=== PATIENT | female | born 1960 | race Caucasian/White ===

== ENCOUNTER → 2019-08-30 13:34 | Outpatient (BNVA) | payer MEDICAID, SELFPAY | PROVIDERS: Family Provider Nurse Practitioner; PCP Nurse Practitioner; Visit Provider Specialist | DX: G47.411 Narcolepsy with cataplexy (principal); F17.210 Nicotine dependence, cigarettes, uncomplicated | CPT/HCPCS: 99213 ==

== ENCOUNTER → 2019-11-16 08:58 | Outpatient (BNVA) | payer MEDICAID, SELFPAY | PROVIDERS: Family Provider Nurse Practitioner; PCP Nurse Practitioner; Visit Provider Nurse Practitioner | DX: M46.1 Sacroiliitis, not elsewhere classified (principal); R00.0 Tachycardia, unspecified; E78.2 Mixed hyperlipidemia; E55.9 Vitamin D deficiency, unspecified | CPT/HCPCS: 80053; 80061; 82306; 84443 ==

== ENCOUNTER → 2019-12-26 11:59 | Outpatient (BNVA) | payer MEDICAID, SELFPAY | PROVIDERS: Family Provider Nurse Practitioner; PCP Nurse Practitioner; Visit Provider Nurse Practitioner | DX: M54.30 Sciatica, unspecified side (principal); R00.0 Tachycardia, unspecified | CPT/HCPCS: 82607 ==

== ENCOUNTER 2020-01-02 15:19 | Outpatient (CLI) | payer MEDICAID, SELFPAY ==
--- NOTE | 2020-01-02 15:00 | USCV_ITS ---
Nataly Soto Age: 59 Gender: F : 1960 Exam Date: 01/02/2020 15:31 Ordering Phys: Enrique Rene Technologist: Exam Location: [facility] [place]_ Indication: COLD LT FOOT Risk Factors: COLD LT FOOT Previous Vascular Surgery: None RIGHT LEFT BP: 113.0 / BP: 121.0/ 0 0 Waveform Velocity (cm/s) Velocity (cm/s) Waveform Iliac Prox 76.1 Biphasic Iliac Mid 69.2 Biphasic Iliac Distal Biphasic 54.3 MEDICAL RECORDS DIRECTOR 63.0 Biphasic SFA Prox 74.8 Biphasic SFA Mid 77.7 Biphasic SFA Dist 56.2 Biphasic POP 80.1 Biphasic TIGHTENER 31.5 Biphasic DPA 26.4 Biphasic 1.1 YARA 1.0 FINDINGS CALLED PRELIM TO BRIANNA AT CLINIC Normal resting YARA bilaterally Abnormal arterial Doppler waveform in the left side CONCLUSIONS No significant arterial obstruction based on the above findings. Abnormal Doppler waveforms, may suggest arterial noncompliance Dr Bernarda Mckeon MD [facility] (Electronically Signed) Final Date: 03 Jan 2020 20:13 S
== END 2020-01-02 15:20 | disposition home or self-care (01) ==
LOC: RAD 15:22
PROVIDERS: Family Provider Nurse Practitioner; PCP Nurse Practitioner; Visit Provider Nurse Practitioner
DX: M79.605 Pain in left leg (principal); M79.675 Pain in left toe(s); R20.9 Unspecified disturbances of skin sensation
CPT/HCPCS: 93926

== ENCOUNTER 2020-01-17 10:44 | Outpatient (CLI) | payer MEDICAID, SELFPAY ==
--- NOTE | 2020-01-17 11:17 | XR_ITS ---
WS: [id number] LUMBAR SPINE TECHNIQUE: 3 views of the lumbar spine CLINICAL INFORMATION: lumbar pain down left leg COMPARISON: 2013 FINDINGS: Five tbd-egj-oekorhn lumbar vertebral bodies. Cholecystectomy clips. Mild disc space narrowing throug hout the lumbar spine. Slight retrolisthesis L2 on L3 and L3 on L4. Moderate facet arthropathy L5-S1. Aortic calcification. XR/XR lumbar spine 2-3V* [id number] IMPRESSION: 1. Slight retrolisthesis L2 on L3 and L3 on L4. 2. Mild disc space narrowing throughout the lumbar spine. 3. No acute appearing compression fractures. 4. Mild to moderate spondylitic changes. 5. Disc space narrowing progressed since 2013
== END 2020-01-17 10:45 | disposition home or self-care (01) ==
LOC: RADWPI 10:48
PROVIDERS: Family Provider Nurse Practitioner; PCP Nurse Practitioner; Visit Provider Nurse Practitioner
DX: M54.30 Sciatica, unspecified side (principal)
CPT/HCPCS: 72100

== ENCOUNTER 2020-02-07 16:07 | Outpatient (CLI) | payer MEDICAID, SELFPAY ==
--- NOTE | 2020-02-07 15:15 | MR_ITS ---
WS: [id number] MRI LUMBAR SPINE NONCONTRAST TECHNIQUE: Sagittal T1, T2 and STIR imaging. Axial T1 and T2 imaging. CLINICAL INFORMATION: M43.10 Spondylolisthesis, site unspecified COMPARISON: None. FINDINGS: Lumbar curve. No acute compression. Multilevel disc bulging throughout the lumbar spine. T2 hyperintense eccentric lesion in the left cauda equina extending from 2.1 x 0.6 x 0.7 cm craniocau torey by AP by transverse. Eccentric displacement of the surrounding cauda equina nerve rootlets. Cauda equina lesion extends from L2 to L3. Recommend further evaluation with gadolinium. Findings suspicio us for schwannoma versus ependymoma. L1-L2: Mild disc bulging with slight effacement of ventral thecal sac. Tiny central protrusion. Mild facet arthropathy. L2-L3: Mild annular bulging. Slight effacement of the ventral thecal sac. Mild facet arthropathy. Mil d left and no significant right foraminal narrowing. L3-L4: Mild disc bulging with moderate central canal stenosis. Moderate facet arthropathy ligament fl avum hypertrophy. Moderate right and no significant left foraminal narrowing. Slight impingement on t he exiting right L3 nerve root and traversing right L4 nerve root. L4-L5: Mild annular bulging with slight effacement of the ventral thecal sac. Mild to moderate centra l canal stenosis. Impingement traversing left greater than right L5 nerve roots. Left foraminal protr usion with mild to moderate left foraminal narrowing and contact of the exiting left L4 nerve root. M ild right foraminal narrowing. L5-S1: Mild annular bulging. Tiny central protrusion. Slight contact the left S1 nerve root. Foramen are patent. Mild facet arthropathy. Peripelvic renal cysts. MR/MR lumbar spine wo con* [id number] IMPRESSION: 1. T2 hyperintense lesion within the cauda equina nerve rootlets extending fro m L2 to L3 eccentric to the left. This measures 2.1 x 0.6 by 0.7 CM. Recommend further evaluation with gadolinium. Primary differential considerations include schwannoma versus ependymoma. 2. Moderate central canal stenosis L3-4 and mild/moderate central canal stenos is L4-5. Impingement traversing right L4 and left L5 nerve roots in the subarti cular recess. 3. Mild to moderate foraminal narrowing right L3-4 and left L4-5. 4. Shallow left pericentral protrusion L5-S1 slightly contacts the left S1 ner ve root.
== END 2020-02-07 16:08 | disposition home or self-care (01) ==
LOC: RADSHAW 16:10
PROVIDERS: PCP Nurse Practitioner; Visit Provider Nurse Practitioner
DX: M43.10 Spondylolisthesis, site unspecified (principal); G58.8 Other specified mononeuropathies; M48.061 Spinal stenosis, lumbar region without neurogenic claudication; M51.27 Other intervertebral disc displacement, lumbosacral region
CPT/HCPCS: 72148

== ENCOUNTER → 2020-02-19 12:58 | Outpatient (BNVA) | payer MEDICAID, SELFPAY | PROVIDERS: PCP Nurse Practitioner; Visit Provider Specialist | DX: G47.419 Narcolepsy without cataplexy (principal); D43.4 Neoplasm of uncertain behavior of spinal cord; M54.5 Low back pain | CPT/HCPCS: 99214 ==

== ENCOUNTER 2020-02-20 13:17 | Outpatient (CLI) | payer MEDICAID, SELFPAY ==
--- NOTE | 2020-02-20 13:48 | MR_ITS ---
WS: [id number] MRI LUMBAR SPINE WITHOUT AND WITH CONTRAST TECHNIQUE: Sagittal T1, T2 and STIR imaging. Axial T1 and T2 imaging. Post gadolinium imaging was obt ained. CLINICAL INFORMATION: MR WITHOUT CONTRAST RECOMMENDS COMPARISON: MRI February 07, 2020 FINDINGS: Mild Lumbar curve. No acute compression. Alignment is unchanged. Multilevel disc bulging throughout t he lumbar spine. Again seen is the T2 hyperintense eccentric lesion in the left cauda equina at L2-L3. This lesion is more well-defined today with less motion artifact and is better defined with contrast today. Enhancin g lesion measures approximately 5 x 4 mm. Eccentric displacement of the surrounding cauda equina nerve rootlets. Post gadolinium images demonst rate intense homogeneous enhancement most consistent with a small schwannoma. No other enhancing lesi ons. No other significant changes from previous. L1-L2: Mild disc bulging with slight effacement of ventral thecal sac. Tiny central protrusion. Mild facet arthropathy. L2-L3: Mild annular bulging. Slight effacement of the ventral thecal sac. Mild facet arthropathy. Mil d left and no significant right foraminal narrowing. L3-L4: Mild disc bulging with moderate central canal stenosis. Moderate facet arthropathy with ligame ntum flavum hypertrophy. Moderate right and no significant left foraminal narrowing. Slight impingeme nt on the exiting right L3 nerve root and traversing right L4 nerve root. L4-L5: Mild annular bulging with slight effacement of the ventral thecal sac. Mild to moderate centra l canal stenosis. Impingement traversing left greater than right L5 nerve roots. Left foraminal protr usion with mild to moderate left foraminal narrowing and contact of the exiting left L4 nerve root. M ild right foraminal narrowing. L5-S1: Mild annular bulging. Tiny central protrusion. Slight contact left S1 nerve root. Foramen are patent. Mild facet arthropathy. MR/MR lumbar spine w con [id number] IMPRESSION: 1. Homogeneously enhancing lesion in the left cauda equina nerve rootlets at L 2-3 measuring 5 x 4 mm. This lesion appears smaller and more well-defined today . Well-circumscribed lesion most consistent with a small schwannoma. 2. No other significant changes from previous.
== END 2020-02-20 13:18 | disposition home or self-care (01) ==
PROVIDERS: Family Provider Nurse Practitioner; PCP Nurse Practitioner; Visit Provider Specialist
DX: M54.5 Low back pain (principal)
CPT/HCPCS: 72149; A9579

== ENCOUNTER 2020-02-28 11:26 | Outpatient (CLI) | payer MEDICAID, SELFPAY ==
--- NOTE | 2020-02-28 11:00 | IR_ITS ---
WS: [id number] MYELOGRAM LUMBAR SPINE Fluoroscopic guided lumbar myelogram CLINICAL INFORMATION: lumbar pain COMPARISON: None. TECHNIQUE: The procedure, including risks, benefits, and complications, were discussed with the patie nt who agreed to proceed. A timeout was performed to confirm correct patient, procedure, and site. Using sterile technique, the patient was prepped and draped in the usual sterile fashion. After admin istration of local anesthesia using 1% preservative-free lidocaine and using fluoroscopic guidance, a 22-gauge spinal needle was advanced into the subarachnoid space at the L5-S1 level. Subsequently 13 cc of Omnipaque 240 was administered into the thecal sac. The needle was removed and hemostasis was a chieved. Spot fluoroscopic images were obtained. FLUOROSCOPIC TIME: .7 minutes. Spot fluoroscopic images demonstrate mild lumbar curve convex left. Cholecystectomy clips. 5 nonrib-b earing lumbar vertebral bodies. Aortic calcification. Slight retrolisthesis L2 on L3 and L3 on L4. Mi ld disc space narrowing L1-2, L3-4, and L4-5. No instability on flexion-extension. Please see CT myelogram report for additional detail. IR/IR myelogram sp lumbar [id number] IMPRESSION: 1. Encounter lumbar myelogram. 2. No instability on flexion-extension.
--- NOTE | 2020-02-28 11:30 | CT_ITS ---
WS: [id number] CT LUMBAR SPINE TECHNIQUE: Contrast-enhanced CT of the lumbar spine with coronal and sagittal reformatted images. CLINICAL INFORMATION: lumbar pain COMPARISON: MRI February 19, 2019 and MRI February 07, 2020 DLP: [id number] scans at [facility] use at least one of these dose optimization techniques: automat ed exposure control; mA and/or kV adjustment per patient size (includes targeted exams where dose is matched to clinical indication); or iterative reconstruction. FINDINGS: Mild lumbar curve. No high-grade central canal stenosis. Mild disc bulging throughout the lumbar spin e. Again seen is the intrathecal lesion at the L2-3 level previously seen on the recent MRIs. This me asures approximately 5.4 x 4.7 x 4.4 mm. Findings are most consistent with a small schwannoma on the prior MRI. Displacement of the surrounding cauda equina nerve rootlets. L1-L2: Mild disc bulging with tiny central protrusion. Spinal canal and foramen are patent. Vacuum di sc phenomenon. Trace retrolisthesis. L2-L3: Mild annular bulging with impingement on the left subarticular recess and traversing left L3 n erve root. Mild left and no significant right foraminal narrowing. Mild facet arthropathy. L3-L4: Mild disc bulging with endplate ridging. Moderate central canal stenosis due to disc bulging i n combination with facet arthropathy and ligamentum flavum hypertrophy. Mild right greater than left foraminal narrowing. L4-L5: Mild disc bulging with moderate central canal stenosis. Impingement on the subarticular recess bilaterally. Mild facet arthropathy. Mild left greater than right foraminal narrowing. Mild disc bul ging with endplate ridging. Mild left and no significant right foraminal narrowing. Spinal canal is p atent. L5-S1: Normal. Visualized pelvic bony structures: Normal. Paravertebral soft tissues: Normal. CT/CT lumbar spine w con [id number] IMPRESSION: 1. Again seen is the solid intrathecal lesion at the L2-3 level today measurin g 5.4 x 4.7 x 4.4 mm. Surrounding displacement of the cauda equina nerve rootle ts. Imaging characteristics most consistent with small nerve sheath tumor likel y schwannoma on the prior MRI. 2. Moderate central canal stenosis L3-L4 and L4-L5. 3. Mild to moderate foraminal narrowing described above unchanged.
[2020-02-28] MEDS: iohexol 240 mg/mL 50 mL Btl INTRATHECA (13:04)
== END 2020-02-28 11:27 | disposition home or self-care (01) ==
PROVIDERS: Family Provider Nurse Practitioner; PCP Nurse Practitioner; Visit Provider Specialist
DX: D43.4 Neoplasm of uncertain behavior of spinal cord; M48.062 Spinal stenosis, lumbar region with neurogenic claudication
CPT/HCPCS: 62304; 72120; 72132; Q9966

== ENCOUNTER → 2020-05-06 14:18 | Outpatient (BNVA) | payer MEDICAID, SELFPAY | PROVIDERS: Family Provider Nurse Practitioner; PCP Nurse Practitioner; Visit Provider Nurse Practitioner | DX: M48.062 Spinal stenosis, lumbar region with neurogenic claudication (principal); E78.2 Mixed hyperlipidemia; R00.0 Tachycardia, unspecified; E55.9 Vitamin D deficiency, unspecified; M46.96 Unspecified inflammatory spondylopathy, lumbar region | CPT/HCPCS: 80053; 80061; 82306; 84443 ==

== ENCOUNTER 2020-05-29 04:50 | Inpatient (IN) | payer MEDICAID, SELFPAY ==
--- NOTE | 2020-05-29 04:52 | ECG_ITS ---
[facility] Test Date: 2020-05-29 Pat Name: Nataly Soto Department: Room: Gender: Female Receptionist: : 1960 Requested By: Sarah Lopez Order Number: [id number] Victoria MD: Bernarda Mckeon M.D. Measurements Intervals [place] Rate: 87 P: 50 DE: 129 QRS: 49 QRSD: 81 T: 37 QT: 377 QTc: 454 Interpretive Statements SINUS RHYTHM WITH MARKED SINUS ARRHYTHMIA No previous ECG available for comparison Electronically Signed On 05-29-2020 21:26:34 CDT by Bernarda Mckeon M.D. [id number]
[2020-05-29 04:53] VITALS: PULSE 87; RESP 16; TEMP 36.7; O2SAT 96; BMI 25.4
--- NOTE | 2020-05-29 05:27 | ED_ITS ---
HPI - Psych General: Chief Complaint: Psychiatric Symptoms Stated Complaint: mhe Time Seen by Provider: 05/29/20 05:13 Source: patient and EMS Mode of arrival: EMS Limitations: no limitations History of Present Illness: HPI Narrative: Nataly is a 59-year-old female brought in by EMS after she was pulled over by law enforcement but then started admitting to hallucinations. She denies any suicidal or homicidal ideation. She states she is seeing things that other people are not seeing. She admits to having this problem before. The patient has a very flat withdrawn affect. F urther history is taken from old charts but the patient has no medical complaints at this time. Review of Systems Const: Denies: fever(s), chills, body aches, fatigue, malaise or diaphoresis Eyes: Denies: change in vision, blurry vision, photophobia, eye discomfort, eye discharge, eye redness or yellow eyes ENMT: Denies: throat pain, odynophagia, hoarseness, swelling of lips/tongue, ear or mastoid pain, ear discharge, change in hearing or nasal discharge Card: Denies: chest pain, palpitations, irregular heart rhythm, edema, lightheadedness, syncope, pre-syncope, dyspnea on exertion or orthopnea Resp: Denies: dyspnea, productive cough, non-productive cough, wheezing, hemoptysis or chest congestion GI: Denies: abdominal pain, nausea, vomiting, hematemesis, coffee ground emesis, heartburn, diarrhea, constipation, GI cramping, hematochezia or melena : Denies: flank pain, dysuria, urinary frequency, urinary urgency or hematuria Musc: Denies: neck pain, back pain, extremity pain, extremity swelling, joint pain, joint swelling, joint redness, joint warmth or joint stiffness Skin/Breast: Denies: rash, pruritus, erythema, skin pain or skin tenderness Neuro: Denies: headache(s), numbness in extremities, weakness in extremities, sensory changes, lack of coordination, difficulty walking, dizziness, vertigo, confusion, Slurred speech present or seizure-like activity Nghia/Lymph: Denies: easy bruising, easy bleeding, petechiae, purpura or enlarged lymph nodes All/Imm: Denies: urticaria, throat swelling, tongue swelling, facial swelling or acute wheezing PFS ED PFSH: Medical History Diverticulosis Footdrop Lumbar stenosis with neurogenic claudication Mixed hyperlipidemia 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 Personal history of smoking Tachycardia, unspecified Vitamin D deficiency Surgical History History of bilateral cataract extraction History of cholecystectomy Family History Other Bleeding disorder Cancer Diabetes Denies family history of Anesthesia complication Social History Smoking and tobacco status: current every day smoker cigarettes Packs smoked per day: 1 Second hand smoke exposure: Yes Smoking risk assessment/counseling performed?: Yes Alcohol intake: never Desire information about alcohol rehabilitation?: No Counseling given: No Desire information about substance/drug rehabilitation?: No Counseling given: No Adopted: No Caregiver/support person: No Lives independently: Yes Marital status: Single service: No Current occupational status: unemployed History of recent travel: No Current gender identity: Female Physical Exam Const: COMMON NORMALS: no acute distress, patient oriented x3, no limitations and alert GENERAL APPEARANCE: cooperative HENMT: COMMON NORMALS: normocephalic, atraumatic, external ears normal, EAC's normal and Normal external nose present HEAD & SCALP: normal to inspection, normocephalic and atraumatic FACE & SINUS: normal facial exam and face symmetric NOSE: Normal external nose present and Normal nares present EXTERNAL EAR: Yes external ears normal EXTERNAL AUDITORY CANAL: EAC's normal MOUTH: Normal oral and palatal mucosa present, lip normal and tongue normal Eye: COMMON NORMALS: Equal, round and reactive pupils present and conjunctivae normal GENERAL EYE: appearance normal, both eyes and all related structures ALIGNMENT: Yes alignment normal PERIORBITAL: periorbital findings normal EYELID: eyelids normal CONJUNCTIVA: Yes conjunctivae normal SCLERA: sclerae normal PUPIL: Yes Equal, round and reactive pupils present Neck/C-Spine: COMMON NORMALS: full ROM, no lymphadenopathy, supple, no meningeal signs and no JVD GENERAL: Yes normal visual inspection and Yes trachea midline Chest: COMMONS NORMALS: normal inspection of the chest and normal palpation of entire chest wall Resp: COMMON NORMALS: normal respiratory effort, No retractions, No use of accessory muscles and clear to auscultation bilaterally EFFORT & INSPECTION: Yes able to speak in complete sentences and Yes symmetric chest movement AUSCULTATION: clear to auscultation bilaterally, no crackles, no rales, no rhonchi and no wheezes Cardio: COMMON NORMALS: no JVD, regular rate, regular rhythm, S1 normal heart sound present and S2 normal heart sound present RATE: regular rate RHYTHM: regular rhythm HEART SOUNDS: S1 normal heart sound present, S2 normal heart sound present, no click, no gallops, no murmurs and no rubs GI: COMMON NORMALS: Soft to palpation and No hepatosplenomegaly present PALPATION: Yes Soft to palpation, No Tenderness to palpation present (GI), No Guarding due to palpation present (GI), No Rigid due to palpation, Yes No hepatosplenomegaly present, No Hernia present, No Palpable mass present and No Pulsatile mass present : COMMON NORMALS: Yes no CVA tenderness BLADDER/KIDNEY EXAM: Yes no CVA tenderness EXTERNAL FEMALE EXAM: No Hernia present Back/Pelvis: COMMON NORMALS: no CVA tenderness, thoracic and lumbar spine normal to inspection, no thoracic nor lumbar tenderness and thoraco-lumbar ROM normal Extremity: COMMON NORMALS: normal to inspection, full ROM, capillary refill normal, no joint enlargement, no clubbing, cyanosis or edema and no calf tenderness Neuro: COMMON NORMALS: patient oriented x3, CN's II-XII intact bilaterally, moves all extremities, no focal motor deficits and no sensory deficits noted SENSORIUM/ORIENTATION: Yes alert MENINGEAL SIGNS: Yes no meningeal signs SPEECH: speech normal Psych: COMMON NORMALS: mental status grossly normal, Normal thought process present, cooperative, normal affect, speech normal and activity/motor behavior normal SPEECH: Yes normal speech THOUGHT PROCESS: Normal thought process present Skin: COMMON NORMALS: no rashes or lesions noted, turgor normal, no jaundice, no petechiae and no mottling GENERAL SKIN EXAM: no rashes or lesions noted and turgor normal MDM - Psych MDM Narrative: Medical decision making narrative: The case was reviewed with Dr. Jaimes and he agrees to accept the patient as long as labs are clear. Labs will be reviewed by oncoming physician and if normal should be admitted to the neuropsychiatric unit. Lab Data: Labs: Lab Results 05/29/20 05/29/20 05/29/20 Range/Units 05:06 05:06 05:06 WBC 6.9 (4.0-10.0) 10^3/ uL RBC 4.76 (4.1-5.3) 10^6/u L Hgb 13.8 (11.5-15.3) g/dL Hct 42.5 (37.0-47.0) % MCV 89.3 (81-99) fL MCH 29.0 (28.0-34.0) pg MCHC 32.5 (30.0-36.0) g/dL RDW 12.9 (12.1-15.1) % Plt Count 376 (130-400) 10^3/c mm MPV 10.3 (7.4-10.4) fL Neut % (Auto) 62.0 % Lymph % (Auto) 25.3 % Saunders % (Auto) 10.7 % Eos % (Auto) 1.0 % Baso % (Auto) 0.9 % Neut # (Auto) 4.27 (1.8-7.7) 10^3/u L Lymph # (Auto) 1.7 (0.8-4.8) 10^3/u L Saunders # (Auto) 0.7 (0.2-0.9) 10^3/u L Eos # (Auto) 0.1 (0.0-0.8) 10^3/u L Baso # (Auto) 0.1 (0.0-0.1) 10^3/u L Nucleated RBC % (a uto) 0 % Nucleated RBCs # 0.0 /100WBC HCG, Qual Negative (Negative) Urine Color Yellow (Yellow) Urine Appearance Sl hazy (CLEAR) Urine pH 5 (5-7) Ur Specific Gravit y 1.025 (1.005-1.030) Urine Protein Neg (Negative) Urine Glucose (UA) Norm (Normal) Urine Ketones 1+ H (Negative) Urine Blood 2+ H (Negative) Urine Nitrate Negative (Negative) Urine Bilirubin Neg (Negative) Urine Urobilinogen 1 H (Negative) mg/dL Ur Leukocyte Liane ase Negative (Negative) Urine RBC 0-4 H (0-2) /hpf Urine WBC 0-4 H (0-5) /hpf Ur Squamous Epith Cells 10-15 H (0-5) /hpf Amorphous Sediment Not Reportable Urine Bacteria 1+ H (NONE) /hpf Hyaline Casts 5-10 H /lpf Urine Opiates Scre en (Negative) ng/mL Ur Barbiturates Sc reen (Negative) ng/mL Ur Phencyclidine S crn (Negative) ng/mL Ur Amphetamines Sc reen (Negative) ng/mL U Benzodiazepines Scrn (Negative) ng/mL Urine Cocaine Scre en (Negative) ng/mL U Marijuana (THC) Screen (Negative) ng/mL 05/29/20 Range/Units 05:06 WBC (4.0-10.0) 10^3/ uL RBC (4.1-5.3) 10^6/u L Hgb (11.5-15.3) g/dL Hct (37.0-47.0) % MCV (81-99) fL MCH (28.0-34.0) pg MCHC (30.0-36.0) g/dL RDW (12.1-15.1) % Plt Count (130-400) 10^3/c mm MPV (7.4-10.4) fL Neut % (Auto) % Lymph % (Auto) % Saunders % (Auto) % Eos % (Auto) % Baso % (Auto) % Neut # (Auto) (1.8-7.7) 10^3/u L Lymph # (Auto) (0.8-4.8) 10^3/u L Saunders # (Auto) (0.2-0.9) 10^3/u L Eos # (Auto) (0.0-0.8) 10^3/u L Baso # (Auto) (0.0-0.1) 10^3/u L Nucleated RBC % (a uto) % Nucleated RBCs # /100WBC HCG, Qual (Negative) Urine Color (Yellow) Urine Appearance (CLEAR) Urine pH (5-7) Ur Specific Gravit y (1.005-1.030) Urine Protein (Negative) Urine Glucose (UA) (Normal) Urine Ketones (Negative) Urine Blood (Negative) Urine Nitrate (Negative) Urine Bilirubin (Negative) Urine Urobilinogen (Negative) mg/dL Ur Leukocyte Liane ase (Negative) Urine RBC (0-2) /hpf Urine WBC (0-5) /hpf Ur Squamous Epith Cells (0-5) /hpf Amorphous Sediment Urine Bacteria (NONE) /hpf Hyaline Casts /lpf Urine Opiates Scre en Negative (Negative) ng/mL Ur Barbiturates Sc reen Negative (Negative) ng/mL Ur Phencyclidine S crn Negative (Negative) ng/mL Ur Amphetamines Sc reen Positive H (Negative) ng/mL U Benzodiazepines Scrn Positive H (Negative) ng/mL Urine Cocaine Scre en Negative (Negative) ng/mL U Marijuana (THC) Screen Positive H (Negative) ng/mL EKG Data^: EKG 1: Attestation: I personally reviewed and interpreted this EKG as follows: EKG interpretation date: 05/29/20 EKG interpretation time: 05:11 Interpretation: Normal sinus rhythm at 87 beats a minute, normal axis, no blocks, normal intervals. Discharge Plan Discharge Patient Disposition: Admitted As Inpatient Clinical Impression: Acute psychosis Condition: Stable Prescriptions: No Action cholecalciferol (vitamin D3) 1,250 mcg (50,000 unit) tablet 1,250 mcg PO .on 1st and 16th Qty: 2 RF: 5 fenofibrate micronized 134 mg capsule 134 mg PO DAILY Qty: 30 RF: 5 Vyvanse 50 mg capsule 100 mg PO QAM 30 Days Qty: 60 RF: 0 cyanocobalamin (vitamin B-12) 1,000 mcg/mL solution 1,000 mcg IM ONCE Qty: 1 RF: 0 zonisamide [Zonegran] 100 mg capsule 100 mg PO TID Qty: 90 RF: 2 cyclobenzaprine 10 mg tablet 10 mg PO TID 30 Days Qty: 90 RF: 2 clopidogrel [Plavix] 75 mg tablet 75 mg PO DAILY Qty: 30 RF: 2 metoprolol succinate 50 mg tablet extended release 24 hr 50 mg PO DAILY Qty: 30 RF: 2 Referrals: Enrique Rene, [employer] [Primary Care Provider] - Coding Level of Care Code ED Supervisor Final for Chg Fwd Exam Comprehensive
[2020-05-29 05:28] LABS: Basophils # 0.1 10^3/uL (0.0-0.1); Basophils % 0.9 %; Eosinophils # 0.1 10^3/uL (0.0-0.8); Hematocrit 42.5 % (37.0-47.0); Hemoglobin 13.8 g/dL (11.5-15.3); Lymphocytes # 1.7 10^3/uL (0.8-4.8); Lymphocytes % 25.3 %; Mean Corpuscular HGB Conc 32.5 g/dL (30.0-36.0); Mean Corpuscular Volume 89.3 fL (81-99); Mean Platelet Volume 10.3 fL (7.4-10.4); Monocytes # 0.7 10^3/uL (0.2-0.9); Monocytes % 10.7 %; Neutrophils # 4.27 10^3/uL (1.8-7.7); Nucleated Red Blood Cells % 0 %; Platelet Count 376 10^3/cmm (130-400); Red Blood Count 4.76 10^6/uL (4.1-5.3); Red Cell Distribution Width 12.9 % (12.1-15.1); White Blood Count 6.9 10^3/uL (4.0-10.0)
[2020-05-29 05:29] LABS: HCG Qualitative Urine. Negative (Negative)
[2020-05-29 05:34] LABS: Amphetamines Screen Urine Positive (Negative); Barbiturates Screen Urine Negative (Negative); Benzodiazepines Screen Urine Positive (Negative); Cocaine Screen Urine Negative (Negative); Opiate Screen Urine Negative (Negative); PCP Screen Urine Negative (Negative); THC Screen Urine Positive (Negative)
[2020-05-29 05:40] LABS: Add Urine Microscopic? YES; Bilirubin Urine Neg (Negative); Blood Urine 2+ (Negative); Glucose Urine UA Norm (Normal); Ketones Urine 1+ (Negative); Leukocyte Esterase Urine Negative (Negative); Nitrate Urine Negative (Negative); Protein Urine Neg (Negative); Specific Gravity, Urine 1.025 (1.005-1.030); Urine Appearance SL Hazy (CLEAR); Urine Color Yellow (Yellow); Urobilinogen Urine 1 mg/dL (Negative); pH Urine 5 (5-7)
[2020-05-29 05:41] LABS: Bacteria Urine 1+ /hpf; RBC Urine 0-4 /hpf (0-2); WBC Urine 0-4 /hpf (0-5)
[2020-05-29 06:05] VITALS: BP 150/89; PULSE 88; RESP 16; O2SAT 97
[2020-05-29 06:08] LABS: Alanine Aminotransferase 36 U/L (0-33); Albumin Level 4.2 g/dL (3.5-5.2); Alkaline Phosphatase 132 IU/L (35-105); Anion Gap 14.6 (5-19); Aspartate Amino Transferase 38 U/L (0-32); Blood Urea Nitrogen 11 mg/dL (6-20); Calcium 9.8 mg/dL (8.5-10.5); Carbon Dioxide 24 mmol/L (22-29); Chloride 103 mmol/L (98-107); Globulin 2.6 g/dL (1.3-4.6); Glomerular Filtration Rate 64.3 mL/min (90-130); Glucose 113 mg/dL (65-115); Osmolality Calculated 286 mOsm/kg (285-295); Potassium 3.6 mmol/L (3.5-5.1); Sodium 138 mmol/L (136-145); Total Bilirubin 0.3 mg/dL (0.15-1.2); Total Protein 6.8 g/dL (6.6-8.7)
[2020-05-29 06:13] LABS: Acetaminophen < 5.0 ug/mL (10-30); Alcohol Level < 10 mg/dL (0-10); Salicylate < 0.3 mg/dL (3-10)
[2020-05-29 06:33] VITALS: BP 150/89; PULSE 88; RESP 16; TEMP 36.7; O2SAT 97
--- NOTE | 2020-05-29 09:43 | PC.RESP ---
SMOKING CESSATION INFORMATION SENT TO PATIENT.
[2020-05-29 14:00] VITALS: BP 104/66; PULSE 74; RESP 18; TEMP 36.1; O2SAT 97
--- NOTE | 2020-05-29 14:42 | P.HP_ITS ---
Providers/Chief Complaint Admitting Physician: Jb Muhammad M.D. Primary Care Provider: WHITNEY Byrd Chief Complaint: mhe HPI NPU History of Present Illness Nataly Soto is a 59 year old female who was pulled over by law enforcement but then started admitting to hallucinations. She denies any suicidal or homicidal ideation. She states she is seeing things that other people are not seeing. She admits to having this problem before. The patient has a very flat withdrawn affect. It is almost impossible to get a coherent history from her. She rambles on and I cannot understand what she is saying. She appears to have pressured speech with much garbled production but very little comprehensible information. Review of Systems General: Reports: ROS unobtainable due to mental status Meds NPU Home Medications Medication Instructions Recorded Confirmed Last Taken Type fenofibrate micronized 134 mg 134 mg PO DAILY #30 cap 11/16/19 05/06/20 Unknown Rx capsule lisdexamfetamine 50 mg capsule 100 mg PO QAM 30 Days #60 cap 02/19/20 05/06/20 Unknown Rx cyclobenzaprine 10 mg tablet 10 mg PO TID 30 Days #90 tab 04/09/20 05/29/20 Unknown Rx clopidogrel 75 mg tablet 75 mg PO DAILY #30 tab 04/28/20 05/29/20 Unknown Rx metoprolol succinate 50 mg 50 mg PO DAILY #30 tab 04/28/20 05/06/20 Unknown Rx tablet,extended release 24 hr zonisamide 100 mg capsule 100 mg PO TID #90 cap 05/06/20 05/06/20 Unknown Rx cholecalciferol (vitamin D3) 1,250 mcg PO DAILY 05/29/20 05/29/20 Unknown History [Dialyvite Vitamin D3 Max] clopidogrel [Plavix] 75 mg PO DAILY 05/29/20 05/29/20 Unknown History zonisamide [Zonegran] 100 mg PO TID 05/29/20 05/29/20 Unknown History Allergies Allergy/AdvReac Type Severity Reaction Status Date / Time tramadol AdvReac dizziness Verified 02/29/20 14:08 PFSH NPU PFSH: Medical History Diverticulosis Footdrop Lumbar stenosis with neurogenic claudication Mixed hyperlipidemia 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 Personal history of smoking Tachycardia, unspecified Vitamin D deficiency Surgical History History of bilateral cataract extraction History of cholecystectomy Family History Other Bleeding disorder Cancer Diabetes Denies family history of Anesthesia complication Social History Smoking and tobacco status: current every day smoker cigarettes Packs smoked per day: 1 Second hand smoke exposure: Yes Smoking risk assessment/counseling performed?: Yes Alcohol intake: never Desire information about alcohol rehabilitation?: No Counseling given: No Desire information about substance/drug rehabilitation?: No Counseling given: No Adopted: No Caregiver/support person: No Lives independently: Yes Marital status: Single service: No Current occupational status: unemployed History of recent travel: No Current gender identity: Female Other Psychiatric History: Other Psychiatric History: Patient states she has never had any psychiatric treatment nor has she been on psychotropics. Her urine toxicology is positive for amphetamines, benzodiazepines, which are not listed on her home meds, and marijuana Mental Status Exam MSE Comments: This is a 59-year-old female who seems older than her stated age. She is clean and well kempt. Mood is very anxious although she is not able to verbalize that. Affect is oftentimes inappropriate. Thought processes are racing and burdened by looseness of associations and flight of ideas. She seems to be giving an account of what happened to her that precipitated her hospitalization but it is completely incomprehensible. Speech is quite rapid and never stops. Cognitive functions are inaccessible to evaluation. She may in fact be quite disoriented and is surely bereft of insight and judgment. Vitals/I&O/Wt Last Vital Signs Temp 98.0 F 05/29/20 06:33 Pulse 88 05/29/20 06:33 Resp 16 05/29/20 06:33 BP 150/89 05/29/20 06:33 Pulse Ox 97 05/29/20 06:33 Weight last 48 hrs Weight 135 lb Physical Exam Narrative: EXAM NARRATIVE: Const: no acute distress, patient oriented x3, no limitations and alert GENERAL APPEARANCE: cooperative HENMT: HEAD & SCALP: normal to inspection, normocephalic and atraumatic FACE & SINUS: normal facial exam and face symmetric NOSE: Normal external nose and Normal nares EXTERNAL EAR: external ears normal EXTERNAL AUDITORY CANAL: EAC's normal MOUTH: Normal oral and palatal mucosa , lip normal and tongue normal Eye: Conjunctivae normal GENERAL EYE: appearance normal, both and all related structures ALIGNMENT: alignment normal PERIORBITAL: periorbital findings normal EYELID: eyelids normal SCLERA: sclerae normal PUPIL: Equal, round and reactive pupils Neck/C-Spine: full ROM, no lymphadenopathy, supple, no meningeal signs and no JVD GENERAL: normal visual inspection and trachea midline Chest: normal inspection of the chest and normal palpation of entire chest wall Resp: normal respiratory effort, No retractions, No use of accessory muscles EFFORT & INSPECTION: able to speak in complete sentences and symmetric chest movement AUSCULTATION: clear to auscultation bilaterally, no crackles, no rales, no rhonchi and no wheezes Cardio: no JVD, regular rate, regular rhythm, S1 normal heart sound and S2 normal heart sound RATE: regular rate RHYTHM: regular rhythm HEART SOUNDS: S1 normal heart sound , S2 normal heart sound , no click, no gallops, no murmurs and no rubs GI: Soft to palpation and No hepatosplenomegaly No Tenderness to palpation (GI), No Guarding due to palpation (GI), No Rigid due to palpation, No Hernia , No Palpable mass and No Pulsatile mass : no CVA tenderness EXTERNAL FEMALE EXAM: No Hernia Back/Pelvis: thoracic and lumbar spine normal to inspection, no thoracic nor lumbar tenderness and thoraco-lumbar ROM normal Extremity: normal to inspection, full ROM, capillary refill normal, no joint enlargement, no clubbing, cyanosis or edema and no calf tenderness Neuro: patient oriented x3, CN's II-XII intact bilaterally, moves all extremities, no focal motor deficits and no sensory deficits noted SENSORIUM/ORIENTATION: alert MENINGEAL SIGNS: no meningeal signs Psych: mental status grossly normal, Normal thought process , cooperative, normal affect, speech normal and activity/motor behavior normal Skin: no rashes or lesions noted, turgor normal, no jaundice, no petechiae and no mottling. Data NPU : 05/29/20 05:06 05/29/20 05:06 A&P Assessment and plan (1) Bipolar I disorder with dangelo: Status: Acute (2) Polysubstance abuse: Status: Chronic Additional A&P Information This patient is clearly floridly manic. She requires diagnosis, treatment and appropriate discharge planning which is several midnights of why Involuntary Hold Information 96 Hour Hold: 96 Hour Involuntary Admission: No Attestations NPU Medical Necessity Statement*: I anticipate 7-10 midnights additional stay.. Time Spent in Patient Care: Greater than 35 minutes (>than 50% of time spent in counselling and/or direct pt care on unit) . 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
[2020-05-29 20:36] VITALS: BP 107/65; PULSE 75; RESP 18; TEMP 36.8; O2SAT 97
[2020-05-29] MEDS: trazodone 50 mg Tablet PO (21:34)
[2020-05-29] MEDS: lithium carbonate 150 mg Capsule PO (21:34)
[2020-05-29] MEDS: hyDROXYzine 25 mg Capsule 50 MG PO (21:34)
--- NOTE | 2020-05-29 21:43 | PC.NURSE ---
pt refused her lithium after putting it in her mouth and gagging. She vomited twice and said she just wants to go to sleep. She wants to see Dr pedersen and go home.
--- NOTE | 2020-05-29 22:29 | PC.NURSE ---
Addendum entered by Irina Demarco RN 05/30/20 04:49: Patient has not slept more than an hour tonight. She refuses medication. Original Note: Patient attempted to take her medication. She gagged and vomited. Medication administration unsuccessful
[2020-05-30 06:00] VITALS: BP 112/57; PULSE 82; RESP 17; TEMP 36.5; O2SAT 98
--- NOTE | 2020-05-30 07:59 | PC.NURSE ---
REFUSED SCHEDULED LITHIUM, PT STATED SHE ISN'T TAKING ANY MEDS WHILE SHE IS HERE
--- NOTE | 2020-05-30 12:43 | P.DS_ITS ---
Diagnoses at Discharge Discharge Diagnosis (1) Bipolar I disorder with dangelo: Status: Acute (2) Polysubstance abuse: Status: Chronic Reason for Visit Reason for Visit: mhe Brief History: History of Present Illness Nataly Soto is a 59 year old female who was pulled over by law enforcement but then started admitting to hallucinations. She denies any suicidal or homicidal ideation. She states she is seeing things that other people are not seeing. She admits to having this problem before. The patient has a very flat withdrawn affect. It is almost impossible to get a coherent history from her. She rambles on and I cannot understand what she is saying. She appears to have pressured speech with much garbled production but very little comprehensible information. Review of Systems General: Reports: ROS unobtainable due to mental status Meds NPU Home Medications Medication Instructions Recorded Confirmed Last Taken Type fenofibrate micronized 134 mg 134 mg PO DAILY #30 cap 11/16/19 05/06/20 Unknown Rx capsule lisdexamfetamine 50 mg capsule 100 mg PO QAM 30 Days #60 cap 02/19/20 05/06/20 Unknown Rx cyclobenzaprine 10 mg tablet 10 mg PO TID 30 Days #90 tab 04/09/20 05/29/20 Unknown Rx clopidogrel 75 mg tablet 75 mg PO DAILY #30 tab 04/28/20 05/29/20 Unknown Rx metoprolol succinate 50 mg 50 mg PO DAILY #30 tab 04/28/20 05/06/20 Unknown Rx tablet,extended release 24 hr zonisamide 100 mg capsule 100 mg PO TID #90 cap 05/06/20 05/06/20 Unknown Rx cholecalciferol (vitamin D3) 1,250 mcg PO DAILY 05/29/20 05/29/20 Unknown History [Dialyvite Vitamin D3 Max] clopidogrel [Plavix] 75 mg PO DAILY 05/29/20 05/29/20 Unknown History zonisamide [Zonegran] 100 mg PO TID 05/29/20 05/29/20 Unknown History Allergies Allergy/AdvReac Type Severity Reaction Status Date / Time tramadol AdvReac dizziness Verified 02/29/20 14:08 PFSH NPU PFSH: Medical History Diverticulosis Footdrop Lumbar stenosis with neurogenic claudication Mixed hyperlipidemia 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 Personal history of smoking Tachycardia, unspecified Vitamin D deficiency Surgical History History of bilateral cataract extraction History of cholecystectomy Family History Other Bleeding disorder Cancer Diabetes Denies family history of Anesthesia complication Social History Smoking and tobacco status: current every day smoker cigarettes Packs smoked per day: 1 Second hand smoke exposure: Yes Smoking risk assessment/counseling performed?: Yes Alcohol intake: never Desire information about alcohol rehabilitation?: No Counseling given: No Desire information about substance/drug rehabilitation?: No Counseling given: No Adopted: No Caregiver/support person: No Lives independently: Yes Marital status: Single service: No Current occupational status: unemployed History of recent travel: No Current gender identity: Female Hospital Course Hospital Course Nataly presented to the emergency department reporting hallucinations but had identified these when she was pulled over by law enforcement. She was admitted to the neuropsychiatric unit as a voluntary admission for definitive treatment of these issues. She quickly acclimated to the individual, group and milieu therapies provided and started lithium in addition to her current medications. She reported very quickly that she was feeling better and was not on a 96-hour hold so she was allowed to discharge upon request. During the hospitalization she had routine laboratory studies which were within normal limits except for few outliers. Additionally she had a general medical evaluation which was also within normal limits and revealed no new acute processes. Discharge Summary At the time of discharge she was absent psychosis or lethality. Her mood and anxiety were well managed. She endorsed a plan to avoid drugs of abuse and follow with outpatient recommendations. Evaluated deemed absent credible lethality, was a voluntary admission requesting discharge so she was allowed to leave. Involuntary Hold Information 96 Hour Hold: 96 Hour Involuntary Admission: No Mental Status Exam MSE Comments: This is a well-nourished well-developed older white female with adequate dress, grooming and eye contact no abnormal movements. Cooperative with exam in no acute distress. Speech was normal rate and volume. Mood described as pretty good affect congruent. Thought process organized. Thought content: Patient denied any suicidal or homicidal ideation, there were no delusions reported or noted, she denied any auditory visual hallucinations. Attention and concentration were intact and memory appeared reliable but none were formally tested. She is alert and oriented x3. Insight and judgment were improving impulse control was improving. Discharge Data Vitals: Last Vital Signs Temp 98.4 F 05/30/20 14:00 Pulse 56 L 05/30/20 14:00 Resp 18 05/30/20 14:00 BP 122/76 05/30/20 14:00 Pulse Ox 96 05/30/20 14:00 Discharge Plan Discharge Patient Disposition: Home Condition: Stable Prescriptions: New lithium carbonate 150 mg Capsule 150 mg PO 0900,2100 30 Days Qty: 60 RF: 1 Continued Vyvanse 50 mg capsule 100 mg PO QAM 30 Days Qty: 60 RF: 0 zonisamide [Zonegran] 100 mg capsule 100 mg PO TID Qty: 90 RF: 2 cyclobenzaprine 10 mg tablet 10 mg PO TID 30 Days Qty: 90 RF: 2 clopidogrel [Plavix] 75 mg tablet 75 mg PO DAILY Qty: 30 RF: 2 metoprolol succinate 50 mg tablet extended release 24 hr 50 mg PO DAILY Qty: 30 RF: 2 Zonegran 100 mg capsule 100 mg PO TID RF: 0 Plavix 75 mg tablet 75 mg PO DAILY RF: 0 No Action fenofibrate micronized 134 mg capsule 134 mg PO DAILY Qty: 30 RF: 2 Dialyvite Vitamin D3 Max 1,250 mcg (50,000 unit) tablet 1,250 mcg PO .weekly Qty: 4 RF: 2 Discharge Orders: Discharge Order (Routine); Ordered 05/30/20 Ordered By: Tee Jaimes Referrals: [facility] [Outside] Maggi Crisostomo MD [Physician] - 07/17/20 11:30 am Enrique Rene, DETECTIVE [place] [facility] [Primary Care Provider] - Discharge Diet: Cardiac Discharge Activity: Resume usual activity Patient Instructions: [place] (By mouth) Discharge Date/Time: 05/30/20 07:15 Discharge Attestations NPU Time Spent in Discharge Care*: less than 30 min Specific Discharge Activities: Specific discharge activities: educating patient, discussing with field nurse case manager/social workers/dc planners, ronni garcia/other paperwork and evaluating patient/reviewing data Coding Level of Care Code 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
[2020-05-30 13:32] VITALS: BP 112/57; PULSE 82; RESP 17; TEMP 36.5; O2SAT 98
[2020-05-30 14:00] VITALS: BP 122/76; PULSE 56; RESP 18; TEMP 36.9; O2SAT 96
== END 2020-05-30 07:15 | disposition home or self-care (01) | DRG 885 ==
LOC: ER 06:02 → NP 06:14
PROVIDERS: Emergency Medicine; Admitting Provider Psychiatry & Neurology Psychiatry; PCP Nurse Practitioner; Visit Provider Psychiatry & Neurology Psychiatry
DX: F31.10 Bipolar disorder, current episode manic without psychotic features, unspecified (principal); M21.379 Foot drop, unspecified foot; M48.061 Spinal stenosis, lumbar region without neurogenic claudication; E78.2 Mixed hyperlipidemia; F17.210 Nicotine dependence, cigarettes, uncomplicated; E55.9 Vitamin D deficiency, unspecified; F15.10 Other stimulant abuse, uncomplicated; F12.10 Cannabis abuse, uncomplicated; F19.10 Other psychoactive substance abuse, uncomplicated; Z79.02 Long term (current) use of antithrombotics/antiplatelets
CPT/HCPCS: 12345; 80053; 80306; 80307; 81001; 81025; 84443; 85025; 93005; 99284

== ENCOUNTER 2020-10-23 06:00 | Outpatient (RCR) | payer MEDICAID, SELFPAY | END 2020-11-20 23:59 | disposition home or self-care (01) | LOC: APT 06:00 | PROVIDERS: PCP Nurse Practitioner; Referring Provider Internal Medicine Cardiovascular Disease; Visit Provider Internal Medicine Cardiovascular Disease | DX: M51.36 Other intervertebral disc degeneration, lumbar region (principal); D36.10 Benign neoplasm of peripheral nerves and autonomic nervous system, unspecified; M54.5 Low back pain; G89.29 Other chronic pain | CPT/HCPCS: 97110; 97161 ==

== ENCOUNTER 2020-11-21 06:00 | Outpatient (RCR) | payer MEDICAID, SELFPAY | END 2020-12-20 23:59 | disposition home or self-care (01) | LOC: APT 06:00 | PROVIDERS: PCP Nurse Practitioner; Referring Provider Internal Medicine Cardiovascular Disease; Visit Provider Internal Medicine Cardiovascular Disease | DX: M51.36 Other intervertebral disc degeneration, lumbar region (principal); M54.5 Low back pain; G89.29 Other chronic pain | CPT/HCPCS: 97110 ==

== ENCOUNTER → 2021-03-10 10:10 | Outpatient (BNVA) | payer MEDICAID, SELFPAY | PROVIDERS: PCP Nurse Practitioner; Visit Provider Family Medicine | DX: E78.2 Mixed hyperlipidemia (principal); F31.10 Bipolar disorder, current episode manic without psychotic features, unspecified | CPT/HCPCS: 80053; 80061; 85025 ==

== ENCOUNTER → 2021-08-12 12:37 | Outpatient (BNVA) | payer MEDICAID, SELFPAY | PROVIDERS: PCP Family Medicine; Visit Provider Family Medicine | DX: R53.83 Other fatigue (principal); L65.9 Nonscarring hair loss, unspecified; E55.9 Vitamin D deficiency, unspecified | CPT/HCPCS: 82306; 82607; 83540; 84443; 85025 ==

== ENCOUNTER → 2021-12-02 17:23 | Outpatient (BNVA) | payer MEDICAID, SELFPAY | PROVIDERS: PCP Family Medicine; Visit Provider Family Medicine | DX: E55.9 Vitamin D deficiency, unspecified (principal); R53.83 Other fatigue; E78.2 Mixed hyperlipidemia; L65.9 Nonscarring hair loss, unspecified; G47.411 Narcolepsy with cataplexy; M54.30 Sciatica, unspecified side; R00.0 Tachycardia, unspecified; M51.36 Other intervertebral disc degeneration, lumbar region; F17.210 Nicotine dependence, cigarettes, uncomplicated | CPT/HCPCS: 80053; 80061; 82306; 82607; 84443; 85025 ==

== ENCOUNTER → 2022-03-04 11:25 | Outpatient (BNVA) | payer MEDICAID, SELFPAY | PROVIDERS: PCP Family Medicine; Visit Provider Family Medicine | DX: G47.411 Narcolepsy with cataplexy (principal); M48.062 Spinal stenosis, lumbar region with neurogenic claudication; R00.0 Tachycardia, unspecified; E78.2 Mixed hyperlipidemia; E55.9 Vitamin D deficiency, unspecified | CPT/HCPCS: 80053; 80061; 84443; 85025 ==

== ENCOUNTER → 2022-06-01 17:37 | Outpatient (BNVA) | payer MEDICAID, SELFPAY | PROVIDERS: PCP Family Medicine; Visit Provider Family Medicine | DX: E55.9 Vitamin D deficiency, unspecified (principal); E53.8 Deficiency of other specified B group vitamins; I10 Essential (primary) hypertension; G47.411 Narcolepsy with cataplexy; R00.0 Tachycardia, unspecified; E78.2 Mixed hyperlipidemia | CPT/HCPCS: 80053; 80061; 82306; 82607; 84443; 85025 ==

== ENCOUNTER → 2022-08-28 12:53 | Outpatient (BNVA) | payer MEDICAID, SELFPAY | PROVIDERS: PCP Family Medicine; Visit Provider Family Medicine | DX: E53.8 Deficiency of other specified B group vitamins (principal); E55.9 Vitamin D deficiency, unspecified; E78.2 Mixed hyperlipidemia; G47.411 Narcolepsy with cataplexy; I10 Essential (primary) hypertension | CPT/HCPCS: 80053; 80061; 82306; 82607; 84443; 85025 ==

== ENCOUNTER → 2022-12-17 12:15 | Outpatient (BNVA) | payer MEDICAID, SELFPAY | PROVIDERS: PCP Family Medicine; Visit Provider Family Medicine | DX: I10 Essential (primary) hypertension (principal); E53.8 Deficiency of other specified B group vitamins; E55.9 Vitamin D deficiency, unspecified; E78.2 Mixed hyperlipidemia | CPT/HCPCS: 80053; 80061; 82306; 82607; 84443 ==

== ENCOUNTER 2022-12-21 13:44 | Outpatient (CLI) | payer MEDICAID, SELFPAY ==
--- NOTE | 2022-12-21 14:21 | MM_ITS ---
WS: [id number] BILATERAL 3D TOMOSYNTHESIS DIGITAL SCREENING MAMMOGRAM WITH CAD CLINICAL INFORMATION: SCREEN HISTORY: Screening mammogram. No current complaints. COMPARISON: 2017 TECHNIQUE: Bilateral CC and MLO views. FINDINGS: Fatty-replaced breasts bilaterally. No suspicious focal mass, asymmetry, calcifications, or consulting it architect ural distortion. No evidence of malignancy. A few incidental punctate calcifications. MM/[place] [id number] IMPRESSION: BI-RADS: 2-Benign FOLLOW UP: 1 Year Follow-up Recommend return to annual screening mammography.
== END 2022-12-21 13:45 | disposition home or self-care (01) ==
LOC: RAD 13:47
PROVIDERS: PCP Family Medicine; Visit Provider Family Medicine
DX: Z12.31 Encounter for screening mammogram for malignant neoplasm of breast (principal)
CPT/HCPCS: 77063; 77067

== ENCOUNTER → 2023-03-22 16:06 | Outpatient (BNVA) | payer MEDICAID, SELFPAY | PROVIDERS: PCP Family Medicine; Visit Provider Family Medicine | DX: E78.2 Mixed hyperlipidemia (principal); E53.8 Deficiency of other specified B group vitamins; E55.9 Vitamin D deficiency, unspecified; I10 Essential (primary) hypertension; G47.419 Narcolepsy without cataplexy | CPT/HCPCS: 80053; 80061; 82306; 82607; 84443; 85025 ==

== ENCOUNTER → 2023-07-12 15:00 | Outpatient (BNVA) | payer MEDICAID, SELFPAY | PROVIDERS: PCP Family Medicine; Visit Provider Family Medicine | DX: E78.2 Mixed hyperlipidemia (principal); E53.8 Deficiency of other specified B group vitamins; I10 Essential (primary) hypertension; G47.419 Narcolepsy without cataplexy; E55.9 Vitamin D deficiency, unspecified | CPT/HCPCS: 80053; 80061; 82306; 82607; 84443; 85025 ==

== ENCOUNTER 2023-09-21 09:59 | Outpatient (CLI) | payer MEDICAID, SELFPAY ==
--- NOTE | 2023-09-21 09:00 | PETR_ITS ---
PROCEDURE INFORMATION: Exam: PET/CT Skull Base to Mid-thigh Exam date and time: 09/21/2023 11:16 AM Age: 63 years old Clinical indication: Abnormal findings; Solitary pulmonary nodule; Additional info: R91.1 - solitary pulmonary nodule LABS AND CLINICAL REPORTS: Glucose: 110 mg/dl Treatment strategy for malignancy (PET staging): Initial Staging (PI) TECHNIQUE: Imaging protocol: Following at least four-hour fasting and following the injection of radiopharmaceutical, low dose CT images were obtained. Then, PET images were obtained. Attenuation corrected images were constructed using the CT scan. Fused images of PET and CT were reviewed. The standardized uptake values (SUV) reported below are maximum values within a region of interest, expressed in gm/ml. Exam includes orbital meatal line to mid-thigh. Radiopharmaceutical: 11.13 mCi F-18 FDG (Fluorodeoxyglucose), IV. Time of imaging post radiopharmaceutical administration: 1 hour Injection site: Right antecubital vein COMPARISON: CT chest abdomen pelvis 11/14/2013 FINDINGS: Brain: Visualized brain has normal physiologic uptake. Pharynx: No abnormal uptake. Larynx: No abnormal uptake. Lungs, pleura and trachea: 1.5 x 1.1 cm right upper lobe nodule in the perihilar area anteriorly measures 7.6 SUV. 0.8 x 0.5 cm subpleural nodule anteriorly and medially in the right upper lobe abutting mediastinal pleura measures 2.6 SUV. 0.5 cm calcified granuloma present in the left lower lobe on axial image 87. Dependent ground-glass opacities with mild subpleural honeycombing in the lower lobes may represent atelectatic changes or mild fibrosis, increased in size and density in comparison with prior exam of 2013. No pleural effusion. Heart: Normal physiologic uptake. There is no cardiomegaly. Coronary artery calcification is present. There is no pericardial effusion. Mediastinal space: No abnormal uptake. Liver: No abnormal uptake. Status post cholecystectomy. Gallbladder and bile ducts: No abnormal uptake. Pancreas: No abnormal uptake. Spleen: No abnormal uptake. No splenomegaly. Adrenal glands: No abnormal uptake. No nodules. Kidneys and ureters: Normal physiologic uptake. No hydronephrosis. Stomach and bowel: No abnormal uptake. There is diverticulosis of the sigmoid colon. Intraperitoneal and retroperitoneal spaces: No abnormal uptake. No ascites. Bladder: Normal physiologic uptake. Reproductive: No abnormal uptake. Vasculature: No abnormal uptake. No aortic aneurysm. Lymph nodes: No abnormal uptake. No lymphadenopathy in the head, neck, chest, abdomen, pelvis, and extremities. Bones/joints: Mildly increased synovial uptake in the shoulders on the left more than on the right is suggestive of benign degenerative/inflammatory finding. Soft tissues: No abnormal uptake in the visualized head, neck, chest, abdomen, pelvis, and extremities. [id number] IMPRESSION: Two FDG avid findings in the right upper lobe concerning for malignancy including 1.5 x 1.1 cm perihilar nodule measuring 7.6 SUV, and 0.8 cm subpleural nodule abutting the mediastinal pleura measuring 2.6 SUV. No FDG avid lymphadenopathy or other distant findings concerning for metastatic disease.
== END 2023-09-21 10:00 | disposition home or self-care (01) ==
LOC: RAD 10:00
PROVIDERS: PCP Family Medicine; Visit Provider Family Medicine
DX: R91.1 Solitary pulmonary nodule (principal)
CPT/HCPCS: 78815; A9552

== ENCOUNTER → 2023-10-19 13:20 | Outpatient (BNVA) | payer MEDICAID, SELFPAY | PROVIDERS: PCP Family Medicine; Referring Provider Family Medicine; Visit Provider Internal Medicine Pulmonary Disease | DX: R91.8 Other nonspecific abnormal finding of lung field (principal); Z87.891 Personal history of nicotine dependence; J43.2 Centrilobular emphysema | CPT/HCPCS: 99204 ==

== ENCOUNTER 2023-10-26 07:44 | Day surgery (SDC) | payer MEDICAID, SELFPAY ==
[2023-10-26] VITALS (8 sets, daily range): BP systolic 114–148; BP diastolic 72–86; PULSE 84–97; RESP 16–18; TEMP 36.1–36.2; O2SAT 92–100; BMI 25.4
--- NOTE | 2023-10-26 07:47 | CT_ITS ---
WS: [id number] CT CHEST TECHNIQUE: Noncontrast CT of the chest with coronal and sagittal reformatted images. CLINICAL INFORMATION: FOR PULMONARY BIOPSY COMPARISON: None. DLP: [address] scans at [facility] use at least one of these dose optimization techniques: automated e xposure control; mA and/or kV adjustment per patient size (includes targeted exams where dose is matc hed to clinical indication); or iterative reconstruction. FINDINGS: Moderate chronic emphysematous changes. Again seen is the previously described 1.5 cm FDG-a vid perihilar nodule. Subpleural nodule abutting the mediastinum anteriorly. Today this measures appr oximately 1.0 cm slightly increased in size compared to previous. Prior cholecystectomy. Normal GE junction. Adrenal glands are normal. IMPRESSION: Images obtained for intraoperative bronchoscopy guidance purposes
--- NOTE | 2023-10-26 08:24 | SC_ITS ---
WS: [id number] INTRAOPERATIVE TECHNIQUE: 2 Spot fluoroscopic images for intraoperative purposes. FLUOROSCOPY TIME: 95.7 seconds CLINICAL INFORMATION: ION/EBUS/Bronch FINDINGS: Fluoroscopy used for intraoperative bronchoscopy purposes. Cannulation of the RIGHT upper lobe bronchus. IMPRESSION: Images obtained for intraoperative purposes.
[2023-10-26] MEDS: sodium chloride 0.9% 1,000 ML 30 ML IV (08:37)
--- NOTE | 2023-10-26 08:47 | ANES.PREANE2 ---
Pre-Anesthetic Assessment Height/Weight: Height 1.55 m Weight 61.235 kg Temp Pulse Resp BP Pulse Ox O2 Del Method 97.1 F L 97 18 148/85 98 Room Air 10/26/23 08:12 10/26/23 08:12 10/26/23 08:12 10/26/23 08:12 10/26/23 08:12 10/26/23 08:12 Operation Date: 10/26/23 09:00 Proposed Procedures p ION, EBUS, 95322, 12591, 46295, 61242, 24886, 92076, 21576, 33499, 44223, 62643, 62590, 03216, 70310, 58400,R91.8(Not Applicable) - Ankit Ashley MD s Ebus(Not Applicable) - Ankit BustosrMD Last intake: Intake Last Liquid Date 10/25/23 Last Liquid Time 23:30 Last Solid Date 10/25/23 Last Solid Time 23:30 Social Tobacco Exam alert, clear to auscultation bilaterally and regular rate & rhythm Airway Submandibular: within normal limits Cervical ROM: within normal limits Mallampati: Class I History/ROS No significant history except as noted Anesthetic Plan ASA status: 2 Anesthesia: General Risk of > 500 ml blood loss (7ml/kg in children): No Medications/Allergies Home Medications Medication Instructions Recorded Confirmed Last Taken Type aspirin 81 mg tablet,delayed 81 mg PO DAILY 12/02/21 10/22/23 10/20/23 History release (Adult Low Dose Aspirin) insulin syringe-needle U-100 1 mL #1 ea 07/12/23 10/19/23 Unknown Rx 25 x 1 cholecalciferol (vitamin D3) 1,250 See Rx Instructions .Route 10/14/23 10/26/23 10/21/23 Rx mcg (50,000 unit) capsule .COMPLEX #4 caps cyanocobalamin (vitamin B-12) See Rx Instructions .Route 10/14/23 10/22/23 1 Week Ago Rx 1,000 mcg/mL injection solution .COMPLEX #1 mL ~10/15/23 doxepin 10 mg capsule 10 mg PO TID PRN anxiety #90 caps 10/14/23 10/22/23 10/21/23 Rx fenofibrate micronized 134 mg See Rx Instructions .Route 10/14/23 10/22/2324 Rx capsule .COMPLEX #30 caps gabapentin 600 mg tablet See Rx Instructions .Route 10/14/23 10/26/23 10/25/23 Rx .COMPLEX #90 tabs lisdexamfetamine 50 mg capsule 100 mg (2 x 50 mg) PO QAM 30 days 10/14/23 10/26/23 10/26/23 Rx (Vyvanse) #60 caps metoprolol succinate 50 mg See Rx Instructions .Route 10/14/23 10/26/23 10/25/23 Rx tablet,extended release 24 hr .COMPLEX #30 tabs syringe with needle 3 mL 25 gauge #1 ea 10/14/23 10/19/23 Unknown Rx x 1 (BD Luer-Karen Syringe) albuterol sulfate 90 mcg/actuation 2 puff inhalation Q6H PRN 10/19/23 10/26/23 10/26/23 Rx aerosol inhaler shortness of breath or wheezing #8.5 grams tiotropium bromide 18 mcg capsule 1 cap inhalation DAILY #60 10/19/23 10/22/23 Unknown Rx with inhalation device (Spiriva inhalations with HandiHaler) Allergies Allergy/AdvReac Type Severity Reaction Status Date / Time insect venom Allergy Unknown Verified 10/19/23 14:16 tramadol AdvReac dizziness Verified 10/19/23 14:16 Current Medications Generic Name Dose Route Start Last Admin Trade Name Freq PRN Reason Stop Dose Admin Sodium Chloride 1,000 mls @ 30 mls/hr 10/26/23 08:00 10/26/23 08:37 Sodium Chloride 0.9% IV 10/27/23 07:59 30 mls/hr .Q24H ARIEL Administration PFSH Anesthesia Medical History (Updated 10/22/23 @ 19:43 by Ankit Ashley MD) Footdrop Lumbar stenosis with neurogenic claudication 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 Tachycardia, unspecified Personal history of smoking Diverticulosis Mixed hyperlipidemia Vitamin D deficiency Surgical History History of bilateral cataract extraction History of cholecystectomy Family History Other Bleeding disorder Cancer Diabetes Denies family history of Anesthesia complication Social History Smoking and tobacco/nicotine status: current every day tobacco/nicotine user (1 PPD) cigarettes Packs smoked per day: 1 Years cigarettes smoked: 44 [ Other cigarette details: Started at age 19] Second hand smoke exposure: Yes Alcohol intake: never Substance/Drug Use: unknown Adopted: No Caregiver/support person: No Lives independently: Yes Marital status: Single service: No Current occupational status: unemployed Do you think of yourself as: Straight/Heterosexual Current gender identity: Female Data Anesthesia Cardiac Studies: No Data to Display
--- NOTE | 2023-10-26 08:56 | W.PM.OPSUD ---
Surgery/Procedure H&P Update DATE OF PROCEDURE: October 26, 2023 DATE H&P PERFORMED: 10/19/23 H&P UPDATE INFORMATION: I have reviewed H&P completed within last 30 days, I have examined patient prior to procedure and No changes to prior documentation CHANGES TO PREVIOUS DOCUMENTATION: none PREOP DIAGNOSIS: suspected malignancy PRIMARY INDICATION FOR PROCEDURE: suspected malignancy PLANNED PROCEDURE: Operation Date: 10/26/23 09:00 Proposed Procedures p ION, EBUS, 80522, 29392, 61175, 92664, 63803, 61760, 53622, 94093, 39488, 99910, 45717, 49757, 57750, 18100,R91.8(Not Applicable) - Ankit Ashley MD s Ebus(Not Applicable) - Ankit Ashley MD Related Problem List Diagnoses (1) Incidental lung nodule, greater than or equal to 8mm:
[2023-10-26] MEDS: lidocaine 1% INJ 10 mL (per mL) XX (09:15)
[2023-10-26 10:46] LABS: Apprearance, Bronch Wash Hazy (CLEAR); Bronch Source RIGHT UPPER LUNG BAL; Color, Bronc Wash Slight Pink
[2023-10-26 10:47] LABS: PATH Referral Yes
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
--- NOTE | 2023-10-26 11:17 | XRR_ITS ---
PROCEDURE INFORMATION: Exam: XR Chest Exam date and time: 10/26/2023 11:21 AM Age: 63 years old Clinical indication: Device placement; Other: Lung biopsy; Prior surgery; Surgery date: Post-operative (0-2 days); Additional info: Post op TECHNIQUE: Imaging protocol: Radiologic exam of the chest. Views: 1 view. COMPARISON: CT chest ION (PULM ONLY) [id number] 10/26/2023 8:03 AM FINDINGS: Lungs: No consolidation. Bibasilar atelectasis. Pleural spaces: No sizable pleural effusion or pneumothorax. Heart/Mediastinum: No cardiomegaly. Bones/joints: Unremarkable. XR/XR chest 1V portable [id number] IMPRESSION: No acute intrathoracic findings.
[2023-10-26 11:34] LABS: Cyto Order Verification Order Verified
[2023-10-26 13:43] LABS: Total Cells Counted Bronch 100
--- NOTE | 2023-10-26 15:37 | ANE.PACU2 ---
Inpatient post-anesthesia follow up: Vital signs: Temperature 97.0 F Pulse Rate 86 Respiratory Rate 16 Blood Pressure 128/75 Pulse Oximetry 92 Oxygen Delivery Me thod Room Air Oxygen Flow Rate 8 Fraction of Inspir ed Oxygen Additional Comments: no apparent anesthetic complications noted
== END 2023-10-26 12:18 | disposition home or self-care (01) ==
PROVIDERS: PCP Family Medicine; Visit Provider Internal Medicine Pulmonary Disease
PROC: 0BJ08ZZ Inspection of Tracheobronchial Tree, Via Natural or Artificial Opening Endoscopic (ICD-10-PCS; CPT 31622; principal; 2023-10-26 09:00)
PROC: BB4BZZZ Ultrasonography of Pleura (ICD-10-PCS; 2023-10-26 09:00)
DX: R91.8 Other nonspecific abnormal finding of lung field (principal); J43.2 Centrilobular emphysema; I10 Essential (primary) hypertension; E55.9 Vitamin D deficiency, unspecified; R06.02 Shortness of breath; R53.83 Other fatigue; Z79.82 Long term (current) use of aspirin; Z79.4 Long term (current) use of insulin; E78.2 Mixed hyperlipidemia; F17.210 Nicotine dependence, cigarettes, uncomplicated
CPT/HCPCS: 31624; 31627; 31628; 31629; 31645; 31653; 71045; 71250; 76000; 80503; 87070; 87205; 88112; 88305; 89050; J1100; J2371; J2405; J2704; J3010; J3490; J7030

== ENCOUNTER → 2024-01-11 16:22 | Outpatient (BNVA) | payer MEDICAID, SELFPAY | PROVIDERS: PCP Family Medicine; Visit Provider Family Medicine | DX: F41.8 Other specified anxiety disorders (principal); E78.2 Mixed hyperlipidemia; R00.0 Tachycardia, unspecified; G47.411 Narcolepsy with cataplexy; E53.8 Deficiency of other specified B group vitamins; I10 Essential (primary) hypertension; E55.9 Vitamin D deficiency, unspecified; J43.2 Centrilobular emphysema; Z79.899 Other long term (current) drug therapy | CPT/HCPCS: 80053; 80061; 82306; 82607; 84443; 85025 ==

== ENCOUNTER → 2024-04-10 15:27 | Outpatient (BNVA) | payer MEDICAID, SELFPAY | PROVIDERS: PCP Family Medicine; Visit Provider Family Medicine | DX: I10 Essential (primary) hypertension; E78.2 Mixed hyperlipidemia; E55.9 Vitamin D deficiency, unspecified; E53.8 Deficiency of other specified B group vitamins | CPT/HCPCS: 80053; 80061; 82306; 82607; 84443; 85025 ==